=== PATIENT | male | born 1965 | race Caucasian/White ===

== ENCOUNTER 2016-11-23 05:39 | Emergency (ER) | payer BC ==
--- NOTE | 2016-11-23 11:10 | ER Document Report ---
ED General - General Stated Complaint: left great toe pain Time Seen by Provider: 11/23/16 06:05 Mode of Arrival: Ambulatory Information source: Patient Notes: Patient is a 51 year old male with a history of gout (20 years ago) presents to the ED with complaints of left great toe pain, swelling and redness 1 week. TRAVEL OUTSIDE OF THE [place] IN LAST 30 DAYS: No - HPI Onset: Other - 1 week Associated symptoms: Other - see above - Related Data Allergies/Adverse Reactions: No Known Allergies Allergy (Verified 04/02/16 15:19) Past Medical History - Social History Smoking Status: Never Smoker Family History: DM, Other - Parents: [place], cardiac disease, [place] - Past Medical History Cardiac Medical History: Reports: Hx Hypertension Neurological Medical History: Reports: Hx Cerebrovascular Accident - hemmoragic Endocrine Medical History: Reports: Hx Diabetes Mellitus Type 1 GI Medical History: Reports: Hx Diverticulitis Past Surgical History: Reports: Hx Abdominal Surgery - Removal s large intestine made a colostomy; a revision of the colostomy, Hx Colostomy - Reversed now - Immunizations Immunizations up to date: Yes Hx Diphtheria, Pertussis, Tetanus Vaccination: Yes Review of Systems - Review of Systems Constitutional: No symptoms reported EENT: No symptoms reported Cardiovascular: No symptoms reported Respiratory: No symptoms reported Gastrointestinal: No symptoms reported Genitourinary: No symptoms reported Male Genitourinary: No symptoms reported Musculoskeletal: See HPI, Other - left great toe swelling, pain and redness Skin: See HPI, Other - redness over left great toe Hematologic/Lymphatic: No symptoms reported Neurological/Psychological: No symptoms reported Physical Exam - General General appearance: Appears well, Alert In distress: None - HEENT Head: Normocephalic, Atraumatic Eyes: Normal Extraocular movements intact: Yes Pupils: PERRL - Respiratory Respiratory status: No respiratory distress - Cardiovascular Rhythm: Regular - Abdominal Inspection: Normal - Back Back: Normal - Extremities General upper extremity: Normal inspection, Normal ROM General lower extremity: Normal ROM, Other - swelling, erythema and tenderness over left great toe - Neurological Neuro grossly intact: Yes - Psychological Associated symptoms: Normal affect, Normal mood - Skin Skin Temperature: Warm Skin Moisture: Dry Skin Color: Normal Skin irregularity: Erythema - over left great toe Discharge - Discharge Referrals: GARRY ALEJANDRO MD [Primary Care Provider] - Follow up as needed Scribe Documentation - Scribe Written by Tomas:: tomas Garcia, 11/23/2016, 1110 acting as scribe for :: Alyssa
== END 2016-11-23 06:36 | disposition home or self-care (01) ==
LOC: ER 05:39
DX: M10.9 Gout, unspecified (principal); M79.675 Pain in left toe(s); I10 Essential (primary) hypertension; E10.9 Type 1 diabetes mellitus without complications

== ENCOUNTER → 2019-02-22 | Outpatient (CLI) | payer BC ==
--- NOTE | 2019-02-22 13:02 | RADIOLOGY REPORT (SQ) ---
EXAM DESCRIPTION: U/S NON-OB PELVIS LTD W/O DOP COMPLETED DATE/TIME: 02/22/2019 12:30 pm REASON FOR STUDY: K40.90 UNIL INGUINAL HERNIA, W/O OBST OR GANGR, NOT SPCF RECUR K40.90 UNIL ING UINAL HERNIA, W/O OBST OR GANGR, NOT SPCF COMPARISON: None. TECHNIQUE: Dynamic and static grayscale images acquired of the pelvis via transabdominal approach an d recorded on PACS. Additional selected color Doppler and spectral images recorded. LIMITATIONS: None. FINDINGS: Imaging of the left groin shows what appears to be a couple of abnormal nodes. The larger measures 38 x 27 x 18 mm. The smaller measures 29 x 25 x 15 mm. No hernia is seen. IMPRESSION: Abnormal appearing lymph nodes are seen. No hernia is identified. TECHNICAL DOCUMENTATION: JOB ID: [id number] [employer]- All Rights Reserved Rev-08/25 Reading location - IP/workstation name: [email or web address]
== END ==
LOC: RAD 11:48
PROVIDERS: ATTEND Nurse Practitioner Family
DX: K40.90 Unilateral inguinal hernia, without obstruction or gangrene, not specified as recurrent (principal)
CPT/HCPCS: 76857

== ENCOUNTER 2019-02-24 09:09 | Observation (INO) | payer BC ==
--- NOTE | 2019-02-24 09:19 | ER Document Report ---
ED Medical Screen (RME) - General Chief Complaint: Skin Problem Stated Complaint: POSSIBLE CELLULITIS Time Seen by Provider: 02/24/19 09:11 Primary Care Provider: CLAYTON CONNOR FNP-C [Primary Care Provider] - Follow up as needed Mode of Arrival: Ambulatory Information source: Patient Notes: 53-year-old male with history of diabetes high blood pressure diverticulitis presents emergency department with left lower leg cellulitis. Reports it started on Monday. He was evaluated and treated at [facility] with a shot of something and prescribed Septra. Patient reports on Monday he had a temperature of 102. No temperature today. Presents today with increased redness to the lower leg and streaks going up his thigh. Complains of pain but declines pain medication. I have greeted and performed a rapid initial assessment of this patient. A comprehensive ED assessment and evaluation of the patient, analysis of test results and completion of the medical decision making process will be conducted by additional ED providers. Dictation of this chart was performed using voice recognition software; therefore, there may be some unintended grammatical errors. TRAVEL OUTSIDE OF THE [place] IN LAST 30 DAYS: No - Related Data Allergies/Adverse Reactions: No Known Allergies Allergy (Verified 02/24/19 09:17) Home Medications: Septra Past Medical History - Social History Chew tobacco use (# tins/day): No Frequency of alcohol use: None Drug Abuse: None - Past Medical History Cardiac Medical History: Reports: Hx Hypertension Neurological Medical History: Reports: Hx Cerebrovascular Accident - hemmoragic Endocrine Medical History: Reports: Hx Diabetes Mellitus Type 1 GI Medical History: Reports: Hx Diverticulitis Past Surgical History: Reports: Hx Abdominal Surgery - Removal s large intestine made a colostomy; a revision of the colostomy, Hx Colostomy - Reversed now - Immunizations Immunizations up to date: Yes Hx Diphtheria, Pertussis, Tetanus Vaccination: Yes Doctor's Discharge - Discharge Referrals: CLAYTON CONNOR FNP-C [Primary Care Provider] - Follow up as needed
[2019-02-24 09:56] LABS: ABSOLUTE EOSINOPHILS # (AUTO) 0.2 10^3/uL (0.0-0.6); ABSOLUTE LYMPHOCYTES (AUTO) 1.9 10^3/uL (0.5-4.7); ABSOLUTE MONOCYTES (AUTO) 0.8 10^3/uL (0.1-1.4); ABSOLUTE NEUT (AUTO) 9.4 10^3/uL (1.7-8.2); BASOPHILS % (AUTO) 0.3 % (0-2); EOSINOPHILS % (AUTO) 1.4 % (0-6); HEMATOCRIT 46.2 % (37.9-51.0); HEMOGLOBIN 15.8 g/dL (13.5-17.0); LYMPHOCYTES % (AUTO) 15.1 % (13-45); MEAN CORPUSCULAR HEMOGLOBIN 32.3 pg (27.0-33.4); MEAN CORPUSCULAR HGB CONC 34.3 g/dL (32.0-36.0); MEAN CORPUSCULAR VOLUME 94 fl (80-97); MONOCYTES % (AUTO) 6.4 % (3-13); PLATELET COUNT 118 10^3/uL (150-450); RED CELL DISTRIBUTION WIDTH 14.1 % (11.5-14.0); SEGMENTED NEUTROPHILS % (AUTO) 76.8 % (42-78); TOTAL CELLS COUNTED % (AUTO) 100 %; WHITE BLOOD COUNT 12.3 10^3/uL (4.0-10.5)
[2019-02-24 10:07] LABS: APPEARANCE,URINE CLEAR; BILIRUBIN,URINE NEGATIVE (NEGATIVE); COLOR,URINE YELLOW; GLUCOSE, URINE NEGATIVE (NEGATIVE); KETONES,URINE NEGATIVE (NEGATIVE); LEUKOCYTE ESTERASE,URINE NEGATIVE (NEGATIVE); NITRITE,URINE NEGATIVE (NEGATIVE); PROTEIN,URINE 30 mg/dL (NEGATIVE); URINE SPECIFIC GRAVITY 1.023; UROBILINOGEN,URINE NEGATIVE mg/dL (<2.0)
[2019-02-24 10:12] LABS: ALBUMIN 4.1 g/dL (3.5-5.0); ALKALINE PHOSPHATASE 75 U/L (38-126); ANION GAP 13 (5-19); ASPARTATE AMINO TRANSFERASE 29 U/L (17-59); BILIRUBIN,DIRECT 0.2 mg/dL (0.0-0.4); BILIRUBIN,TOTAL 0.8 mg/dL (0.2-1.3); BLOOD UREA NITROGEN 13 mg/dL (7-20); CALCIUM 8.9 mg/dL (8.4-10.2); CARBON DIOXIDE 22 mmol/L (22-30); CHLORIDE 107 mmol/L (98-107); GLUCOSE 145 mg/dL (75-110); POTASSIUM 3.6 mmol/L (3.6-5.0); TOTAL PROTEIN 7.6 g/dL (6.3-8.2)
[2019-02-24] MEDS ORDERED: IMIPENEM/CILASTATIN SODIUM INJ 500 MG VIAL IV ONE (10:18)
[2019-02-24] MEDS ORDERED: PROMETHAZINE HCL INJ 25 MG/1 ML VIAL IV PRN (10:59)
[2019-02-24] MEDS ORDERED: OXYCODONE-ACETAMINOPHEN 5-325 MG TABLET PO PRN (10:59)
[2019-02-24] MEDS ORDERED: IPRATROPIUM/ALBUTEROL 0.5-2.5 MG/3 ML AMPUL NEB PRN (10:59)
[2019-02-24] MEDS ORDERED: ACETAMINOPHEN 325 MG TABLET PO PRN (10:59)
[2019-02-24] MEDS ORDERED: ONDANSETRON HCL INJ/PF 4 MG/2 ML SDV IV PRN (10:59)
[2019-02-24] MEDS ORDERED: VANCOMYCIN HCL 0 MG in DEXTROSE 5%-WATER 250 ML IV NR (11:00)
[2019-02-24] MEDS: VANCOMYCIN HCL 1,000 MG in DEXTROSE 5%-WATER 250 ML IV SCH (12:23)
--- NOTE | 2019-02-24 13:09 | PDOC H&P ---
History of Present Illness Admission Date/PCP: 02/24/19 11:22 EDDIE NAPOLES, [employer]-C History of Present Illness: REBECCA MAYNARD is a 53 year old male past medical history of diabetes, h yperlipidemia, hypertension, obesity, DJD complaining of left lower extremity pain. On 02/21/2019 patient was helping family member with her daughter, that required crawling under the house, stating he got stuck under and his testicles rolled over each other appropriate. Hours later he noticed redness and swelling of left lower extremity. Went to PCP. Outpatient left lower extremity ultrasound and testicular ultrasound showed testicular swelling was given a shot this does not remember. Was sent home with Bactrim. Has not been very helpful. Patient describes the pain constant, worse with ambulation, pressure-like. Had a fever of 102 on 02/22/2019. Denies any skin trauma, any bites, any penile discharge, any rash, any prior cellulitis, shortness of breath, nausea, chest pain, abdominal pain, diarrhea, constipation or any urinary symptoms. On physical examination patient has left lower extremity below the knee circumferential red-brown swelling, with erythematous lymphangitic spread medially below the groin. Tender to palpation and warm to touch. Bilateral pulses intact. Neurovascularly intact. Past Medical History Cardiac Medical History: Reports: Hypertension Endocrine Medical History: Reports: Diabetes Mellitus Type 1 GI Medical History: Reports: Diverticulitis Past Surgical History Past Surgical History: Reports: Colostomy - Reversed now Social History Smoking Status: Never Smoker Electronic Cigarette use?: No Family History Family History: DM, Other - Parents: [place], cardiac disease, [place] Parental Family History Reviewed: Yes Children Family History Reviewed: Yes Sibling(s) Family History Reviewed.: Yes Medication/Allergy Home Medications: Glipizide [Glipizide Xl] 5 mg PO [id number] 02/24/19 Lisinopril [Prinivil 5 mg Tablet] 2.5 mg PO DAILY 02/24/19 Metformin HCl [Metformin HCl ER] 1,000 mg PO BIDBS 02/24/19 Rosuvastatin Calcium 20 mg PO DAILY 02/24/19 Allergies/Adverse Reactions: No Known Allergies Allergy (Verified 02/24/19 09:17) Physical Exam Vital Signs: Temp Pulse Resp BP Pulse Ox 98.8 F 81 18 156/78 H 95 02/24/19 09:14 02/24/19 09:14 02/24/19 09:14 02/24/19 09:14 02/24/19 09:14 Intake & Output 02/23/19 02/24/19 02/25/19 06:59 06:59 06:59 Weight 95.8 kg General appearance: PRESENT: obese Head exam: PRESENT: atraumatic, normocephalic Respiratory exam: PRESENT: clear to auscultation leeroy. ABSENT: rales, rhonchi, wheezes Cardiovascular exam: PRESENT: RRR. ABSENT: diastolic murmur, rubs, systolic murmur GI/Abdominal exam: PRESENT: normal bowel sounds, soft. ABSENT: distended, guarding, mass, organolmegaly, rebound, tenderness Gentrourinary exam: ABSENT: ecchymosis, erythema, lacerations, lesions, scrotal swelling, testicular tenderness, urethral discharge, indwelling catheter, other Extremities exam: PRESENT: full ROM. ABSENT: calf tenderness, clubbing, pedal edema Musculoskeletal exam: PRESENT: tenderness, other - left lower extremity below the knee circumferential red-brown swelling, with erythematous lymphangitic spread medially below the groin. Tender to palpation and warm to touch. Bilateral pulses intact. Neurovascularly intact. Neurological exam: PRESENT: alert, awake, oriented to person, oriented to place, oriented to time, oriented to situation, CN II-XII grossly intact. ABSENT: motor sensory deficit Results Laboratory Results: 02/24/19 09:34 02/24/19 09:34 02/24/19 02/24/19 02/24/19 09:25 09:34 09:34 WBC 12.3 H RBC 4.90 Hgb 15.8 Hct 46.2 MCV 94 MCH 32.3 MCHC 34.3 RDW 14.1 H Plt Count 118 L Seg Neutrophils % 76.8 Sodium 142.4 Potassium 3.6 Chloride 107 Carbon Dioxide 22 Anion Gap 13 BUN 13 Creatinine 1.20 Est GFR ( Amer) > 60 Glucose 145 H Calcium 8.9 Total Bilirubin 0.8 AST 29 Alkaline Phosphatase 75 Total Protein 7.6 Albumin 4.1 Urine Color YELLOW Urine Appearance CLEAR Urine pH 6.0 Ur Specific [place] 1.023 Urine Protein 30 H Urine Glucose (UA) NEGATIVE Urine Ketones NEGATIVE Urine Blood NEGATIVE Urine Nitrite NEGATIVE Ur Leukocyte Esterase NEGATIVE Urine WBC (Auto) 1 Urine RBC (Auto) 2 Assessment and Plan - Diagnosis (1) Cellulitis of left lower extremity without foot Is this a current diagnosis for this admission?: Yes Plan: Left lower extremity cellulitis spreading the foot with proximal lymphangitic spread medially. No sign of skin compromise, no active discharge. Neurovascularly intact. Failed outpatient p.o. antibiotics. Was a started on Bactrim by PCP. Given history of diabetes and failed outpatient p.o. antibiotics will admit for parenteral IV antibiotics. We will start on vancomycin IV and ordered blood culture. (2) Diabetes Qualifiers: Diabetes mellitus type: type 2 Is this a current diagnosis for this admission?: Yes Plan: Controlled. Not on insulin. Takes oral hypoglycemics. Reports adherence. Diabetic diet, prandial, basal, sliding scale insulin. Accu-Chek.-Continue present. Hemoglobin A1c. Restart home meds upon discharge. Outpatient PCP follow-up. (3) Hypertension Is this a current diagnosis for this admission?: Yes Plan: Euvolemic. Normotensive. Takes lisinopril 2.5 mg p.o. daily. Restart home meds. PRN IV hydralazine. (4) Hyperlipidemia Is this a current diagnosis for this admission?: Yes Plan: Takes a statin at home. Restart home meds. Diet and lifestyle modification recommended. (5) Obesity (BMI 30.0-34.9) Is this a current diagnosis for this admission?: Yes Plan: Diet and lifestyle modification. Will obtain TSH.
[2019-02-24] MEDS: HEPARIN SOD (PORCINE) 5,000 UNIT/ML 1 ML VIAL SUBCUT SCH ×2 (14:42→21:22)
[2019-02-24] MEDS ORDERED: INFLUENZA QUAD (6MOS+) 2019-20 VAC 0.5 ML SYR IM ONE (15:30)
[2019-02-24] MEDS ORDERED: DEXTROSE 50%-WATER SYRINGE 25 GM/50 ML DOSE IV PRN (17:30)
[2019-02-24] MEDS ORDERED: DEXTROSE 40% GEL 15 GM TUBE X 2 PO PRN (17:30)
[2019-02-24] MEDS ORDERED: DEXTROSE 50%-WATER SYRINGE 12.5 GM/25 ML DOSE IV PRN (17:30)
[2019-02-24] MEDS ORDERED: GLUCAGON,HUMAN RECOMB 1 MG INJ IM PRN (17:30)
[2019-02-24] MEDS ORDERED: DEXTROSE 40% GEL 15 GM TUBE PO PRN (17:30)
--- NOTE | 2019-02-24 20:47 | ER Document Report ---
Entered by ROHITH ZHAO SCRIBE 02/24/19 1017 Acting as scribe for:MAYURI CERDA MD ED General - General Chief Complaint: Skin Problem Stated Complaint: POSSIBLE CELLULITIS Time Seen by Provider: 02/24/19 09:11 Mode of Arrival: Ambulatory Information source: Patient Notes: This 53-year-old male patient presents to the emergency department today with complaints of a left lower extremity skin infection. Patient states that prior to having this infection he was "crawling under a house for his aunt". Patient states that the space was very tight and he had to contort himself to get around, stating that he felt like his "private parts crossed each other" and he isn't sure if this is what is causing his symptoms. Patient was seen for this on 02/22/2019 and was put on Septra. Patient states the infection has continued to worsen since then, stating the redness has become darker and he has noted streaking up his left leg. Patient also complains of fevers now. Patient denies any testicular pain currently or being bitten by anything. Patient states he was wearing coveralls. Pertinent PMHx/PSHx: Diabetes mellitus type 1, low-dose lisinopril for kidney protection - additional PMHx/PSHx not pertinent to this visit as recorded. TRAVEL OUTSIDE OF THE [place] IN LAST 30 DAYS: No - Related Data Allergies/Adverse Reactions: No Known Allergies Allergy (Verified 02/24/19 09:17) Home Medications: Septra Past Medical History - General Information source: Patient, [facility] Records - Social History Smoking Status: Never Smoker Cigarette use (# per day): No Chew tobacco use (# tins/day): No Frequency of alcohol use: None Drug Abuse: None Family History: DM, Other - Parents: [place], cardiac disease, [place] Patient has suicidal ideation: No Patient has homicidal ideation: No - Past Medical History Cardiac Medical History: Denies: Hx Hypertension Neurological Medical History: Reports: Hx Cerebrovascular Accident - Hemorrhagic Endocrine Medical History: Reports: Hx Diabetes Mellitus Type 1 GI Medical History: Reports: Hx Diverticulitis Past Surgical History: Reports: Hx Abdominal Surgery - Removal of large intestine made a colostomy; a revision of the colostomy, Hx Colostomy - Reversed now - Immunizations Immunizations up to date: Yes Hx Diphtheria, Pertussis, Tetanus Vaccination: Yes Review of Systems - Review of Systems Constitutional: See HPI, Fever EENT: No symptoms reported Cardiovascular: No symptoms reported Respiratory: No symptoms reported Gastrointestinal: No symptoms reported Genitourinary: No symptoms reported Male Genitourinary: No symptoms reported Musculoskeletal: See HPI, Other - left leg pain/errythema Skin: See HPI, Change in color Hematologic/Lymphatic: No symptoms reported Neurological/Psychological: No symptoms reported -: Yes All other systems reviewed and negative Physical Exam - Vital signs Vitals: Temp Pulse Resp BP Pulse Ox 98.8 F 81 18 156/78 H 95 02/24/19 09:14 02/24/19 09:14 02/24/19 09:14 02/24/19 09:14 02/24/19 09:14 Interpretation: Normal - General General appearance: Appears well, Alert - HEENT Head: Normocephalic, Atraumatic Eyes: Normal Pupils: PERRL - Respiratory Respiratory status: No respiratory distress Chest status: Nontender Breath sounds: Normal Chest palpation: Normal - Cardiovascular Rhythm: Regular Heart sounds: Normal auscultation Murmur: No - Abdominal Inspection: Normal Distension: No distension Bowel sounds: Normal Tenderness: Nontender Organomegaly: No organomegaly - Back Back: Normal, Nontender - Extremities General upper extremity: Normal inspection, Normal ROM. No: Edema General lower extremity: Normal ROM, Other - see skin exam - Neurological Neuro grossly intact: Yes Cognition: Normal Orientation: AAOx4 Luh Coma Scale Eye Opening: Spontaneous Luh Coma Scale Verbal: Oriented [place] Coma Scale Motor: Obeys Commands [place] Coma Scale Total: 15 Speech: Normal Motor strength normal: LUE, RUE, LLE, RLE Sensory: Normal - Psychological Associated symptoms: Normal affect, Normal mood - Skin Notes: Distal portion of left lower leg is erythematous, having a hemorrhagic rash-like appearance. This area is tender with palpation and hot to the touch. There is lymphangitic streaking going up the left leg into the groin. Associated left inguinal lymphadenopathy. Course - Vital Signs Vital signs: Temp Pulse Resp BP Pulse Ox 99.1 F 64 16 110/63 97 02/24/19 15:40 02/24/19 15:40 02/24/19 15:40 02/24/19 15:40 02/24/19 15:40 - Laboratory Result Diagrams: 02/24/19 09:34 02/24/19 09:34 Laboratory results interpreted by me: 02/24/19 02/24/19 02/24/19 09:25 09:33 09:34 WBC 12.3 H RDW 14.1 H Plt Count 118 L Absolute Neuts (auto) 9.4 H Glucose POC Glucose 139 H Urine Protein 30 H 02/24/19 09:34 WBC RDW Plt Count Absolute Neuts (auto) Glucose 145 H POC Glucose Urine Protein Discharge - Discharge Clinical Impression: Lymphangitis, Elevated blood pressure reading Cellulitis Qualifiers: Site of cellulitis: extremity Site of cellulitis of extremity: lower extremity Laterality: left Qualified Code(s): L03.116 - Cellulitis of left lower limb Diabetes Qualifiers: Diabetes mellitus type: type 2 Diabetes mellitus senior living insulin 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 I personally performed the services described in the documentation, reviewed and edited the documentation which was dictated to the scribe in my presence, and it accurately records my words and actions.
[2019-02-24] MEDS: INSULIN LISPRO 100 UNIT/ML 3 ML VIAL SUBCUT SCH (21:20)
[2019-02-25] MEDS: VANCOMYCIN HCL 1,000 MG in DEXTROSE 5%-WATER 250 ML IV SCH ×2 (00:24→12:45)
[2019-02-25 05:50] LABS: ABSOLUTE EOSINOPHILS # (AUTO) 0.4 10^3/uL (0.0-0.6); ABSOLUTE LYMPHOCYTES (AUTO) 1.8 10^3/uL (0.5-4.7); ABSOLUTE MONOCYTES (AUTO) 0.5 10^3/uL (0.1-1.4); ABSOLUTE NEUT (AUTO) 5.9 10^3/uL (1.7-8.2); BASOPHILS % (AUTO) 0.4 % (0-2); EOSINOPHILS % (AUTO) 4.8 % (0-6); HEMATOCRIT 44.8 % (37.9-51.0); HEMOGLOBIN 15.2 g/dL (13.5-17.0); LYMPHOCYTES % (AUTO) 20.3 % (13-45); MEAN CORPUSCULAR HEMOGLOBIN 32.3 pg (27.0-33.4); MEAN CORPUSCULAR HGB CONC 33.8 g/dL (32.0-36.0); MEAN CORPUSCULAR VOLUME 96 fl (80-97); MONOCYTES % (AUTO) 6.1 % (3-13); PLATELET COUNT 123 10^3/uL (150-450); RED BLOOD COUNT 4.69 10^6/uL (4.35-5.55); RED CELL DISTRIBUTION WIDTH 14.3 % (11.5-14.0); SEGMENTED NEUTROPHILS % (AUTO) 68.4 % (42-78); TOTAL CELLS COUNTED % (AUTO) 100 %; WHITE BLOOD COUNT 8.6 10^3/uL (4.0-10.5)
[2019-02-25] MEDS: HEPARIN SOD (PORCINE) 5,000 UNIT/ML 1 ML VIAL SUBCUT SCH ×3 (06:16→21:42)
[2019-02-25] MEDS: PANTOPRAZOLE SODIUM 40 MG TABLET.DR PO SCH (06:19)
[2019-02-25 06:30] LABS: ALBUMIN 3.5 g/dL (3.5-5.0); ALKALINE PHOSPHATASE 92 U/L (38-126); ANION GAP 9 (5-19); ASPARTATE AMINO TRANSFERASE 52 U/L (17-59); BILIRUBIN,DIRECT 0.2 mg/dL (0.0-0.4); BILIRUBIN,TOTAL 0.7 mg/dL (0.2-1.3); BLOOD UREA NITROGEN 12 mg/dL (7-20); CALCIUM 8.3 mg/dL (8.4-10.2); CARBON DIOXIDE 28 mmol/L (22-30); CHLORIDE 101 mmol/L (98-107); GLUCOSE 112 mg/dL (75-110); POTASSIUM 4.2 mmol/L (3.6-5.0); TOTAL PROTEIN 6.7 g/dL (6.3-8.2)
[2019-02-25] MEDS: INSULIN LISPRO 100 UNIT/ML 3 ML VIAL SUBCUT SCH ×4 (08:06→21:44)
[2019-02-25] MEDS ORDERED: PROMETHAZINE HCL INJ 25 MG/1 ML VIAL IV PRN (08:30)
[2019-02-25] MEDS ORDERED: ONDANSETRON HCL INJ/PF 4 MG/2 ML SDV IV PRN (08:30)
[2019-02-25] MEDS ORDERED: (PENDING PHARMACY ID) (Rosuvastatin Calcium [Rosuvastatin Calcium] 20 MG) PO SCH (10:00)
[2019-02-25] MEDS: LISINOPRIL 5 MG TABLET PO SCH (10:28)
[2019-02-25] MEDS: ASPIRIN 81 MG TABLET, ENT COATED PO SCH (10:29)
[2019-02-25] MEDS: GLIPIZIDE XL 5 MG TAB.ER.24 PO SCH (10:29)
--- NOTE | 2019-02-25 14:30 | PDOC PROGRESS REPORT ---
Subjective Progress Note for:: 02/25/19 Subjective:: REBECCA MAYNARD is a 53 year old male past medical history of diabetes, hyperlipidemia, hypertension, obesity, DJD complaining of left lower extremity pain. On 02/21/2019 patient was helping family member with her daughter, that required crawling under the house, stating he got stuck under and his testicles rolled over each other appropriate. Hours later he noticed redness and swelling of left lower extremity. Went to PCP. Outpatient left lower extremity ultrasound and testicular ultrasound showed testicular swelling was given a shot this does not remember. Was sent home with Bactrim. Has not been very helpful. Patient describes the pain constant, worse with ambulation, pressure-like. Had a fever of 102 on 02/22/2019. Denies any skin trauma, any bites, any penile discharge, any rash, any prior cellulitis, shortness of breath, nausea, chest pain, abdominal pain, diarrhea, constipation or any urinary symptoms. On physical examination patient has left lower extremity below the knee circumferential red-brown swelling, with erythematous lymphangitic spread medially below the groin. Tender to palpation and warm to touch. Bilateral pulses intact. Neurovascularly intact. 02/25/2018. No acute events overnight. On physical examination there is no significant improvement since yesterday. Patient is afebrile, WBC WNL. Patient will benefit from another day of IV antibiotics. Possible DC home tomorrow. Reason For Visit: CELLULITIS Physical Exam Vital Signs: Temp Pulse Resp BP Pulse Ox 97.8 F 60 18 119/73 97 02/25/19 10:59 02/25/19 10:59 02/25/19 10:59 02/25/19 10:59 02/25/19 10:59 Intake & Output 02/24/19 02/25/19 02/26/19 06:59 06:59 06:59 Intake Total 1560 480 Balance 1560 480 Weight 89.5 kg General appearance: PRESENT: no acute distress, well-developed, well-nourished Head exam: PRESENT: atraumatic, normocephalic Respiratory exam: PRESENT: clear to auscultation leeroy. ABSENT: rales, rhonchi, wheezes Cardiovascular exam: PRESENT: RRR. ABSENT: diastolic murmur, rubs, systolic murmur Musculoskeletal exam: PRESENT: other - left lower extremity below the knee ci rcumferential red-brown swelling, with erythematous lymphangitic spread medially below the groin. Tender to palpation and warm to touch. Bilateral pulses intact. Neurovascularly intact. Neurological exam: PRESENT: alert, awake, oriented to person, oriented to place, oriented to time, oriented to situation, CN II-XII grossly intact. ABSENT: motor sensory deficit Results Laboratory Results: 02/25/19 04:17 02/25/19 04:17 02/25/19 02/25/19 04:17 04:17 WBC 8.6 RBC 4.69 Hgb 15.2 Hct 44.8 MCV 96 MCH 32.3 MCHC 33.8 RDW 14.3 H Plt Count 123 L Seg Neutrophils % 68.4 Sodium 137.5 Potassium 4.2 Chloride 101 Carbon Dioxide 28 Anion Gap 9 BUN 12 Creatinine 1.14 Est GFR ( Amer) > 60 Glucose 112 H Calcium 8.3 L Total Bilirubin 0.7 AST 52 Alkaline Phosphatase 92 Total Protein 6.7 Albumin 3.5 Assessment and Plan - Diagnosis (1) Cellulitis of left lower extremity without foot Is this a current diagnosis for this admission?: Yes Plan: Left lower extremity cellulitis spreading the foot with proximal lymphangitic spread medially. No sign of skin compromise, no active discharge. Neurovascularly intact. Failed outpatient p.o. antibiotics. Was a started on Bactrim by PCP. Given history of diabetes and failed outpatient p.o. antibiotics will admit for parenteral IV antibiotics. Due to IV antibiotics. Day 2 IV ceftriaxone. Cultures negative so far. Continue IV antibiotics If physical improvement and afebrile DC home tomorrow on p.o. antibiotics. (2) Diabetes Qualifiers: Diabetes mellitus type: type 2 Is this a current diagnosis for this admission?: Yes Plan: Controlled. Not on insulin. Takes oral hypoglycemics. Reports adherence. Diabetic diet, prandial, basal, sliding scale insulin. Accu-Chek.-Continue present. Hemoglobin A1c. Restart home meds upon discharge. Outpatient PCP follow-up. (3) Hypertension Is this a current diagnosis for this admission?: Yes Plan: Euvolemic. Normotensive. Takes lisinopril 2.5 mg p.o. daily. Restart home meds. PRN IV hydralazine. (4) Hyperlipidemia Is this a current diagnosis for this admission?: Yes Plan: Takes a statin at home. Restart home meds. Diet and lifestyle modification recommended. (5) Obesity (BMI 30.0-34.9) Is this a current diagnosis for this admission?: Yes Plan: Diet and lifestyle modification. Will obtain TSH.
[2019-02-25] MEDS ORDERED: (PENDING PHARMACY ID) (Metformin Hcl [Metformin Hcl Er] 1,000 MG) PO SCH (17:00)
[2019-02-25] MEDS: ATORVASTATIN CALCIUM 40 MG TABLET PO SCH (21:43)
[2019-02-26] MEDS: VANCOMYCIN HCL 1,000 MG in DEXTROSE 5%-WATER 250 ML IV SCH ×2 (00:42→11:30)
[2019-02-26 05:15] LABS: ABSOLUTE EOSINOPHILS # (AUTO) 0.3 10^3/uL (0.0-0.6); ABSOLUTE LYMPHOCYTES (AUTO) 1.6 10^3/uL (0.5-4.7); ABSOLUTE MONOCYTES (AUTO) 0.4 10^3/uL (0.1-1.4); ABSOLUTE NEUT (AUTO) 4.7 10^3/uL (1.7-8.2); BASOPHILS % (AUTO) 0.3 % (0-2); EOSINOPHILS % (AUTO) 4.4 % (0-6); HEMATOCRIT 42.5 % (37.9-51.0); HEMOGLOBIN 14.5 g/dL (13.5-17.0); MEAN CORPUSCULAR HEMOGLOBIN 32.2 pg (27.0-33.4); MEAN CORPUSCULAR HGB CONC 34.1 g/dL (32.0-36.0); MEAN CORPUSCULAR VOLUME 94 fl (80-97); PLATELET COUNT 123 10^3/uL (150-450); RED BLOOD COUNT 4.51 10^6/uL (4.35-5.55); RED CELL DISTRIBUTION WIDTH 14.2 % (11.5-14.0); SEGMENTED NEUTROPHILS % (AUTO) 67.3 % (42-78); TOTAL CELLS COUNTED % (AUTO) 100 %
[2019-02-26] MEDS: HEPARIN SOD (PORCINE) 5,000 UNIT/ML 1 ML VIAL SUBCUT SCH ×3 (05:19→21:31)
[2019-02-26] MEDS: PANTOPRAZOLE SODIUM 40 MG TABLET.DR PO SCH (05:21)
[2019-02-26 05:35] LABS: ANION GAP 11 (5-19); BLOOD UREA NITROGEN 13 mg/dL (7-20); CALCIUM 8.3 mg/dL (8.4-10.2); CARBON DIOXIDE 23 mmol/L (22-30); CHLORIDE 107 mmol/L (98-107); GLUCOSE 141 mg/dL (75-110); POTASSIUM 3.8 mmol/L (3.6-5.0)
[2019-02-26] MEDS: INSULIN LISPRO 100 UNIT/ML 3 ML VIAL SUBCUT SCH ×4 (07:57→21:35)
[2019-02-26] MEDS: GLIPIZIDE XL 5 MG TAB.ER.24 PO SCH (07:57)
[2019-02-26] MEDS: LISINOPRIL 5 MG TABLET PO SCH (09:37)
[2019-02-26] MEDS: ASPIRIN 81 MG TABLET, ENT COATED PO SCH (09:37)
[2019-02-26] MEDS: CHOLECALCIFEROL (D3) 1,000 UNIT (25 MCG) TABLET PO SCH (09:38)
--- NOTE | 2019-02-26 15:31 | PDOC PROGRESS REPORT ---
Subjective Progress Note for:: 02/26/19 Subjective:: Patient still having some pain and cramping in his left lower extremity. Denies any fevers or chills. States the redness looks about similar to yesterday. Reason For Visit: CELLULITIS Physical Exam Vital Signs: Temp Pulse Resp BP Pulse Ox 98.1 F 59 L 16 141/80 H 94 02/26/19 10:59 02/26/19 11:00 02/26/19 11:00 02/26/19 10:59 02/26/19 11:00 Intake & Output 02/25/19 02/26/19 02/27/19 06:59 06:59 06:59 Intake Total 1560 2019 987 Balance 1560 2019 987 Weight 89.5 kg 94.6 kg General appearance: PRESENT: cooperative Neck exam: ABSENT: JVD Respiratory exam: PRESENT: clear to auscultation leeroy, unlabored. ABSENT: accessory muscle use, chest wall tenderness, retraction, rhonchi Cardiovascular exam: PRESENT: RRR - Patient, +S1, +S2. ABSENT: systolic murmur, tachycardia GI/Abdominal exam: PRESENT: normal bowel sounds, soft. ABSENT: ascites, rebound, rigid - Though look my way this is, tenderness Extremities exam: PRESENT: other - Left lower extremity with erythema warmth but no fluctuance spanning the length from ankle to knee. Demarcated with marker. Neurological exam: PRESENT: alert, awake Results Laboratory Results: 02/26/19 03:15 02/26/19 03:15 02/26/19 02/26/19 03:15 03:15 WBC 7.0 RBC 4.51 Hgb 14.5 Hct 42.5 MCV 94 MCH 32.2 MCHC 34.1 RDW 14.2 H Plt Count 123 L Seg Neutrophils % 67.3 Sodium 140.9 Potassium 3.8 Chloride 107 Carbon Dioxide 23 Anion Gap 11 BUN 13 Creatinine 0.96 Est GFR ( Amer) > 60 Glucose 141 H Calcium 8.3 L Assessment and Plan - Diagnosis (1) Cellulitis of left lower extremity without foot Is this a current diagnosis for this admission?: Yes Plan: Continue with vancomycin Blood cultures negative currently at 48 hours We will check ultrasound to evaluate for DVT/thrombophlebitis of fluid collection. 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 Diet and lifestyle modification recommended. (4) Hypertension Is this a current diagnosis for this admission?: Yes Plan: Euvolemic. Normotensive. Takes lisinopril 2.5 mg p.o. daily. - Time Time Spent with patient: 15-24 minutes
--- NOTE | 2019-02-26 19:35 | RADIOLOGY REPORT (SQ) ---
EXAM DESCRIPTION: VENOUS UNILATERAL LOWER COMPLETED DATE/TIME: 02/26/2019 7:18 pm REASON FOR STUDY: Left leg swelling. Assess DVT abscess? COMPARISON: None. TECHNIQUE: Dynamic and static stein scale and color images acquired of the left leg venous system. Se lected spectral images acquired with additional compression and augmentation maneuvers. The contralat eral common femoral vein and saphenofemoral junction were also imaged. Images stored on PACS. LIMITATIONS: None. FINDINGS: COMMON FEMORAL: Normal phasicity, compression and augmentation. No visualized echogenic ma terial on stein scale. No defects on color images. FEMORAL: Normal compression and augmentation. No visualized echogenic material on stein scale. No defe cts on color images. POPLITEAL: Normal compression, augmentation. No visualized echogenic material on stein scale. No defec ts on color images. CALF VESSELS: Normal compression, augmentation. No visualized echogenic material on stein scale. No de fects on color images. GSV and SSV: Normal compression, augmentation. No visualized echogenic material on stein scale. No def ects on color images. ANY DEEP VENOUS INSUFFICIENCY: Not evaluated. ANY EVIDENCE OF POPLITEAL CYST: No. OTHER: There are some prominent lymph nodes. CONTRALATERAL COMMON FEMORAL VEIN AND SAPHENOFEMORAL JUNCTION: Normal phasicity, compression and augmentation. No visualized echogenic material on stein scale. No de fects on color images. IMPRESSION: No DVT or SVT in the left leg. There are some prominent nodes. TECHNICAL DOCUMENTATION: JOB ID: [id number] [email or web address]- All Rights Reserved Reading location - IP/workstation name: [email or web address]
[2019-02-26] MEDS: ATORVASTATIN CALCIUM 40 MG TABLET PO SCH (21:35)
[2019-02-26 22:34] LABS: VANCOMYCIN,TROUGH 8.9 ug/mL (5.0-20.0)
[2019-02-27] MEDS: VANCOMYCIN HCL 1,000 MG in DEXTROSE 5%-WATER 250 ML IV SCH (01:04)
[2019-02-27] MEDS: HEPARIN SOD (PORCINE) 5,000 UNIT/ML 1 ML VIAL SUBCUT SCH (05:00)
[2019-02-27] MEDS: PANTOPRAZOLE SODIUM 40 MG TABLET.DR PO SCH (05:02)
[2019-02-27] MEDS: INSULIN LISPRO 100 UNIT/ML 3 ML VIAL SUBCUT SCH ×2 (07:13→11:28)
[2019-02-27] MEDS: GLIPIZIDE XL 5 MG TAB.ER.24 PO SCH (07:15)
[2019-02-27] MEDS ORDERED: VANCOMYCIN HCL 1,000 MG in DEXTROSE 5%-WATER 250 ML IV SCH (08:00)
[2019-02-27 09:08] VITALS: BP 123/73
[2019-02-27] MEDS: ASPIRIN 81 MG TABLET, ENT COATED PO SCH (09:37)
[2019-02-27] MEDS: CHOLECALCIFEROL (D3) 1,000 UNIT (25 MCG) TABLET PO SCH (09:37)
[2019-02-27] MEDS: LISINOPRIL 5 MG TABLET PO SCH (09:38)
[2019-02-27] MEDS ORDERED: INFLUENZA QUAD (6MOS+) 2019-20 VAC 0.5 ML SYR IM ONE (10:30)
--- NOTE | 2019-02-27 11:40 | PDOC DISCHARGE SUMMARY ---
Impression - Admit/DC Date/PCP Admission Date/Primary Care Provider: 02/24/19 11:22 MISA SETHI Discharge Date: 02/27/19 - Discharge Diagnosis (1) Cellulitis of left lower extremity without foot Is this a current diagnosis for this admission?: Yes (2) Diabetes mellitus Is this a current diagnosis for this admission?: Yes (3) Hyperlipidemia Is this a current diagnosis for this admission?: Yes (4) Hypertension Is this a current diagnosis for this admission?: Yes (5) Obesity (BMI 30.0-34.9) Is this a current diagnosis for this admission?: Yes - Assessment Summary: Patient was admitted due to worsening of left lower extremity cellulitis despite oral antibiotics. Of note patient had actually only taking the Bactrim for about 1.5 days before presenting to the hospital for evaluation of cellulitis. Upon admission blood cultures were obtained. Patient was noted to be hemodynamically stable. CBC revealed leukocytosis of 12. Patient was started on IV vancomycin and cephalosporin. Blood cultures have now been negative for over 72 hours. Patient's leukocytosis is resolved. Patient has started to show improvement in the erythema and cellulitis in his left lower extremity. Venous Dopplers done yesterday showed no evidence of blood clots and no pocket of fluid collection. Patient is being discharged in stable conditions to continue the Bactrim double-strength tablets that were prescribed to him just prior to his hospitalization to complete the remaining prescribed length [patient initially prescribed a 10-day course of which he has only taken about 2 days worth]. I w ill also augment this regimen with Keflex for 7 days. Patient has been instructed to follow-up with his primary care provider for further care. - Additional Information Discharge Diet: As Tolerated Discharge Activity: Activity As Tolerated Referrals: CLAYTON CONNOR FNP-C [NO LOCAL MD] - 03/01/19 3:30 pm (Patient already has a previously scheduled appt. Office would like patient to call prior to appt. date.) Prescriptions: Cephalexin Monohydrate [Keflex 500 mg Capsule] 500 mg PO BID #14 capsule Home Medications: Aspirin [Ecotrin 81 mg EC Tablet] 81 mg PO DAILY 02/24/19 Cholecalciferol (Vitamin D3) [Vitamin D3 1000 Unit Tablet] 1,000 unit PO DAILY 02/24/19 Glipizide [Glipizide Xl] 5 mg PO [id number] 02/24/19 Lisinopril [Prinivil 5 mg Tablet] 2.5 mg PO DAILY 02/24/19 Metformin HCl [Metformin HCl ER] 1,000 mg PO BIDBS 02/24/19 Rosuvastatin Calcium 20 mg PO DAILY 02/24/19 Cephalexin Monohydrate [Keflex 500 mg Capsule] 500 mg PO BID #14 capsule 02/27/19 Sulfamethoxazole/Trimethoprim [Sulfamethoxazole-Tmp Ds Tablet] 1 tab PO Q12 02/27/19 History of Present Illiness History of Present Illness: REBECCA MAYNARD is a 53 year old male past medical history of diabetes, hyperlipidemia, hypertension, obesity, DJD complaining of left lower extremity pain. On 02/21/2019 patient was helping family member with her daughter, that required crawling under the house, stating he got stuck under and his testicles rolled over each other appropriate. Hours later he noticed redness and swelling of left lower extremity. Went to PCP. Outpatient left lower extremity ultrasound and testicular ultrasound showed testicular swelling was given a shot this does not remember. Was sent home with Bactrim. Has not been very helpful. Patient describes the pain constant, worse with ambulation, pressure-like. Had a fever of 102 on 02/22/2019. Denies any skin trauma, any bites, any penile discharge, any rash, any prior cellulitis, shortness of breath, nausea, chest pain, abdominal pain, diarrhea, constipation or any urinary symptoms. On physical examination patient has left lower extremity below the knee circumferential red-brown swelling, with erythematous lymphangitic spread medially below the groin. Tender to palpation and warm to touch. Bilateral pulses intact. Neurovascularly intact. Physical Exam Vital Signs: Temp Pulse Resp BP Pulse Ox 97.5 F 49 L 18 123/73 95 02/27/19 07:28 02/27/19 07:28 02/27/19 07:28 02/27/19 07:28 02/27/19 07:28 Intake & Output 02/26/19 02/27/19 02/28/19 06:59 06:59 06:59 Intake Total 2019 2814 250 Balance 2019 2814 250 Weight 94.6 kg 94.4 kg General appearance: PRESENT: no acute distress, cooperative Neck exam: ABSENT: JVD Respiratory exam: PRESENT: clear to auscultation leeroy, unlabored. ABSENT: tachypnea, wheezes Cardiovascular exam: PRESENT: RRR, +S1, +S2. ABSENT: tachycardia GI/Abdominal exam: PRESENT: normal bowel sounds, soft. ABSENT: rebound, rigid, tenderness Extremities exam: PRESENT: other - Erythema with mild warmth in left lower extremity from knee to ankle for improved from yesterday. No evidence of fluctuance or fluid collection. Results Laboratory Results: WBC 7.0 10^3/uL (4.0-10.5) 02/26/19 03:15 RBC 4.51 10^6/uL (4.35-5.55) 02/26/19 03:15 Hgb 14.5 g/dL (13.5-17.0) 02/26/19 03:15 Hct 42.5 % (37.9-51.0) 02/26/19 03:15 MCV 94 fl (80-97) 02/26/19 03:15 MCH 32.2 pg (27.0-33.4) 02/26/19 03:15 MCHC 34.1 g/dL (32.0-36.0) 02/26/19 03:15 RDW 14.2 % (11.5-14.0) H 02/26/19 03:15 Plt Count 123 10^3/uL (150-450) L 02/26/19 03:15 Lymph % (Auto) 22.0 % (13-45) 02/26/19 03:15 [place] % (Auto) 6.0 % (3-13) 02/26/19 03:15 Eos % (Auto) 4.4 % (0-6) 02/26/19 03:15 Baso % (Auto) 0.3 % (0-2) 02/26/19 03:15 Absolute Neuts (auto) 4.7 10^3/uL (1.7-8.2) 02/26/19 03:15 Absolute Lymphs (auto) 1.6 10^3/uL (0.5-4.7) 02/26/19 03:15 Absolute Monos (auto) 0.4 10^3/uL (0.1-1.4) 02/26/19 03:15 Absolute Eos (auto) 0.3 10^3/uL (0.0-0.6) 02/26/19 03:15 Absolute Basos (auto) 0.0 10^3/uL (0.0-0.2) 02/26/19 03:15 Seg Neutrophils % 67.3 % (42-78) 02/26/19 03:15 Sodium 140.9 mmol/L (137-145) 02/26/19 03:15 Potassium 3.8 mmol/L (3.6-5.0) 02/26/19 03:15 Chloride 107 mmol/L (98-107) 02/26/19 03:15 Carbon Dioxide 23 mmol/L (22-30) 02/26/19 03:15 Anion Gap 11 (5-19) 02/26/19 03:15 BUN 13 mg/dL (7-20) 02/26/19 03:15 Creatinine 0.92 mg/dL (0.52-1.25) 02/26/19 21:58 Est GFR ( Amer) > 60 (>60) 02/26/19 21:58 Est GFR (MDRD) Non-Af > 60 (>60) 02/26/19 21:58 Glucose 141 mg/dL (75-110) H 02/26/19 03:15 POC Glucose 116 mg/dL (70-110) H 02/27/19 11:25 Hemoglobin A1c % 7.2 % (4.7-6.0) H 02/25/19 04:47 Calcium 8.3 mg/dL (8.4-10.2) L 02/26/19 03:15 Total Bilirubin 0.7 mg/dL (0.2-1.3) 02/25/19 04:17 Direct Bilirubin 0.2 mg/dL (0.0-0.4) 02/25/19 04:17 Neonat Total Bilirubin Not Reportable 02/25/19 04:17 Neonat Direct Bilirubin Not Reportable 02/25/19 04:17 Neonat Indirect Bili Not Reportable 02/25/19 04:17 AST 52 U/L (17-59) 02/25/19 04:17 ALT 55 U/L (<50) 02/25/19 04:17 Alkaline Phosphatase 92 U/L (38-126) 02/25/19 04:17 Total Protein 6.7 g/dL (6.3-8.2) 02/25/19 04:17 Albumin 3.5 g/dL (3.5-5.0) 02/25/19 04:17 Urine Color YELLOW 02/24/19 09:25 Urine Appearance CLEAR 02/24/19 09:25 Urine pH 6.0 (5.0-9.0) 02/24/19 09:25 Ur Specific [place] 1.023 02/24/19 09:25 Urine Protein 30 mg/dL (NEGATIVE) H 02/24/19 09:25 Urine Glucose (UA) NEGATIVE mg/dL (NEGATIVE) 02/24/19 09:25 Urine Ketones NEGATIVE mg/dL (NEGATIVE) 02/24/19 09:25 Urine Blood NEGATIVE (NEGATIVE) 02/24/19 09:25 Urine Nitrite NEGATIVE (NEGATIVE) 02/24/19 09:25 Urine Bilirubin NEGATIVE (NEGATIVE) 02/24/19 09:25 Urine Urobilinogen NEGATIVE mg/dL (<2.0) 02/24/19 09:25 Ur Leukocyte Esterase NEGATIVE (NEGATIVE) 02/24/19 09:25 Urine WBC (Auto) 1 /HPF 02/24/19 09:25 Urine RBC (Auto) 2 /HPF 02/24/19 09:25 Squamous Epi Cells Auto <1 /HPF 02/24/19 09:25 Urine Mucus (Auto) OCC /LPF 02/24/19 09:25 Urine Ascorbic Acid NEGATIVE (NEGATIVE) 02/24/19 09:25 Time Trough Drawn 2158 02/26/19 21:58 Vancomycin Trough 8.9 ug/mL (5.0-20.0) 02/26/19 21:58 Impressions: Venous Doppler Study 02/26/19 00:00 IMPRESSION: No DVT or SVT in the left leg. There are some prominent nodes. Plan Time Spent: Less than 30 Minutes Stroke Is this a Stroke Patient?: No Acute Heart Failure - Is this a Heart Failure Patient?: No
== END 2019-02-27 12:42 | disposition home or self-care (01) ==
LOC: ER 09:09 → EH 11:22 → 4N 15:18
PROVIDERS: ADMIT Internal Medicine; ATTEND Internal Medicine
DX: L03.116 Cellulitis of left lower limb (principal); I89.1 Lymphangitis; E78.5 Hyperlipidemia, unspecified; I10 Essential (primary) hypertension; E66.9 Obesity, unspecified; E11.9 Type 2 diabetes mellitus without complications; M19.90 Unspecified osteoarthritis, unspecified site; Z68.34 Body mass index [BMI] 34.0-34.9, adult; Z79.899 Other long term (current) drug therapy; Z79.84 Long term (current) use of oral hypoglycemic drugs; Z86.73 Personal history of transient ischemic attack (TIA), and cerebral infarction without residual deficits; Z90.49 Acquired absence of other specified parts of digestive tract; Z87.19 Personal history of other diseases of the digestive system; Z23 Encounter for immunization
CPT/HCPCS: 99284; 96365; 36415 ×2; 87040; 82962 ×4; 82565; 85025 ×3; 80048; 80053 ×2; 81001; 80202; 83036; 93971; 90686; 97161; G0378 ×5; J0743; J1644; J1815 ×2; J7060 ×4; J3370 ×4; J3490 ×3